=== PATIENT | male | born 1985 | race Caucasian/White ===

== ENCOUNTER 2024-08-22 14:47 | Outpatient (CLI) | payer OTHER, SELFPAY ==
--- NOTE | ~2024-08-22 | MR_ITS ---
EXAMINATION: MR shoulder RT wo con DATE: 08/22/2024 15:25 INDICATION: Right shoulder pain. Bicipital tendinitis. TECHNIQUE: Magnetic resonance imaging (MRI) of the right shoulder was performed without intravenous c ontrast. Sequences included axial PD-weighted FS FSE, coronal oblique PD-weighted FS FSE, coronal obl ique T2-weighted FS FSE, sagittal PD-weighted FS FSE, and sagittal T1-weighted SE. COMPARISON: None. FINDINGS: Coracoacromial arch: The acromion undersurface is curved in morphology (type II). The coracoacromial ligament is normal. A cromioclavicular joint is normal. Rotator cuff: The supraspinatus, infraspinatus and teres minor tendons are normal. The subscapularis tendon is norm al. Normal rotator cuff muscle bulk and signal. Biceps tendon, glenoid labrum and glenohumeral cartilage: Long head of the biceps tendon is normal. Small tear at the chondral labral junction of the 8:30-9:30 position of the posterior glenoid labrum. Normal anterosuperior sublingual foramen. Glenohumeral car tilage is normal. Fluid: Physiologic amount of fluid in the glenohumeral joint and biceps tendon sheath. No loose osteochondr al bodies. Small amount of fluid in the deltoid bursa consistent with mild bursitis. Bones: Normal marrow signal with no edema, fracture or abnormal marrow replacing process. IMPRESSION: 1. Small tear at the chondral labral junction at the 8:30-9:30 position of the posterior glenoid labr um. 2. Mild subdeltoid bursitis. Reviewed, dictated and finalized at location B. MANAGER IMPRESSION: 1. Small tear at the chondral labral junction at the 8:30-9:30 position of the posterior glenoid labrum. 2. Mild subdeltoid bursitis.
== END 2024-08-22 14:48 | disposition home or self-care (01) ==
LOC: GOSHIMG 14:49
PROVIDERS: PCP Registered Nurse; Visit Provider Registered Nurse
DX: M75.21 Bicipital tendinitis, right shoulder (principal); S43.431A Superior glenoid labrum lesion of right shoulder, initial encounter; X58.XXXA Exposure to other specified factors, initial encounter; M75.51 Bursitis of right shoulder
CPT/HCPCS: 73221